=== PATIENT | male | born 1970 | race Caucasian/White ===

== ENCOUNTER 2019-10-22 12:30 | Emergency (ER) | payer MEDICAID ==
[2019-10-22 13:46] VITALS: BP 151/87
== END 2019-10-22 13:46 | disposition home or self-care (01) ==
LOC: ED 12:30
DX: S20.211A Contusion of right front wall of thorax, initial encounter (principal); R07.82 Intercostal pain; W18.09XA Striking against other object with subsequent fall, initial encounter; Y93.89 Activity, other specified; Y92.89 Other specified places as the place of occurrence of the external cause; Y99.8 Other external cause status

== ENCOUNTER 2021-02-01 09:13 | Emergency (ER) | payer MEDICAID ==
[~2021-02-01] VITALS: Ht 175.3 cm; Wt 117.0 kg
[2021-02-01 09:26] VITALS: Ht 175.3 cm; Wt 117.0 kg
[2021-02-01] MEDS ORDERED: TYLENOL325 M1 PO (10:15)
[2021-02-01] MEDS ORDERED: ACETAMINOPHEN-H1 TA1 PO (10:15)
[2021-02-01] MEDS ORDERED: IBU600 M2 PO (10:15)
[2021-02-01 10:27] VITALS: BP 135/77
== END 2021-02-01 10:27 | disposition home or self-care (01) ==
LOC: ED 09:13
DX: L72.0 Epidermal cyst (principal)